=== PATIENT | male | born 1945 | race Two or more races ===

== ENCOUNTER 2022-03-15 14:56 | Outpatient (REF) | payer OTHER, SELFPAY ==
--- NOTE | ~2022-03-15 | XR_ITS ---
EXAMINATION: XR LUMBOSACRAL SPINE WITH OBLIQUES CLINICAL INFORMATION: Intervertebral disc degeneration, lumbar region. COMPARISON: None. TECHNIQUE: AP, both oblique, and lateral views of the lumbar spine. Lateral view of the lumbosacral junction. Flexion and extension views. FINDINGS: There are 5 [id number] lumbar vertebra. There is osteopenia in visualized bones. No acute fracture is evident. There is a grade 1 spondylolisthesis L3 on L4. No instability on flexion-extension views identified. There is severe narrowing of the L4-L5 and L5-S1 disc spaces with marginal sclerosis and spurring. There is facet arthropathy seen at the L5-S1 level bilaterally and L4-L5 bilaterally. There is calcification of a nonaneurysmal abdominal aorta. There is some mild sclerosis about the sacroiliac joints bilaterally but without definite widening or fusion. Patient is status post right total hip arthroplasty. XR/XR lumbar spine 6V w bending IMPRESSION: No acute fracture or spondylolysis of the lumbar spine. No instability on flexion-extension views. Multilevel degenerative change as described.
== END 2022-03-15 14:57 | disposition home or self-care (01) ==
LOC: HO.XRAY 14:56
PROVIDERS: Visit Provider Nurse Practitioner Family
DX: M47.816 Spondylosis without myelopathy or radiculopathy, lumbar region (principal); M51.36 Other intervertebral disc degeneration, lumbar region; M54.16 Radiculopathy, lumbar region; Z92.21 Personal history of antineoplastic chemotherapy
CPT/HCPCS: 72114; 99202